=== PATIENT | male | born 1980 | race Caucasian/White ===

== ENCOUNTER 2020-06-07 17:23 | Emergency (ER) | payer OTHER, SELFPAY ==
--- NOTE | ~2020-06-07 | XR_ITS ---
EXAMINATION: XR ANKLE, LEFT CLINICAL INFORMATION: Ankle pain status post injury COMPARISON: Left ankle 02/13/2012 TECHNIQUE: AP, lateral, and mortise views of the left ankle. FINDINGS: 4 well-corticated bony densities are seen posterior to the medial malleolus which were not present in 2012 and are most likely secondary to chronic injury. Some similar well-corticated densities are seen medial to the calcaneus, also probably from chronic injury. Degenerative changes are present involving the navicular cuneiform joint. No acute fracture is seen. XR/XR ankle LT min 3V IMPRESSION: Evidence of old remote trauma with well-corticated densities as described above. An acute fracture is not seen.
--- NOTE | ~2020-06-07 | XR_ITS ---
EXAMINATION: XR LUMBOSACRAL SPINE CLINICAL INFORMATION: Fell on trampoline. COMPARISON: Lumbar spine 05/27/2015 TECHNIQUE: Three views of the lumbosacral spine. FINDINGS: There is normal lumbar lordosis. There is loss of L5-S1 and L2-L3 disc heights with moderate ventral spondylosis. No lytic process seen. No visible acute fracture or dislocation seen. The paravertebral soft tissues are normal. SI joints are symmetrical and normal. XR/XR lumbar spine 2-3V IMPRESSION: Mild degenerative disc changes L2-L3 and L5-S1 disc levels with moderate ventral spondylosis at L1-L2 and L2-L3 disc levels.
[2020-06-07 17:33] VITALS: BP 148/98; BP 188/88; PULSE 88; RESP 16; TEMP 36.8; O2SAT 96; O2SAT 97; BMI 51.5
--- NOTE | 2020-06-07 18:31 | ED.BACK ---
HPI - Back Pain/Injury General Chief Complaint: Back Pain/Injury Stated Complaint: LT ANKLE PAIN,LOWER BACK PAIN Time Seen by Provider: 06/07/20 18:48 Source: patient Mode of arrival: EMS Limitations: no limitations History of Present Illness HPI Narrative: 39-year-old male presents via EMS after fall off of a bench. Patient stated he was sitting on a bench with his , trying to take a selfie, when the bench flipped over. He landed on his back and twisted his left ankle. He is unable to bear weight, states to have chronic lower back pain because of disc degeneration, and has a history of kidney transplant. He did not hit his head or lose consciousness, denies bowel and bladder incontinence, loss of sensation to the lower extremities, chest pain or pressure, palpitations, shortness of breath, shortness breath on exertion, abdominal pain, abdominal distention, dysuria, hematuria, and any other concerning symptoms. MD elicited complaint: back pain and other (Left ankle pain) Pertinent past history: recent trauma Onset (ago): hour(s) (Within the hour of arrival) Timing: constant Severity: moderate Similar Symptoms Previously: No Quality: aching and spasming Location: lumbar spine Radiation: none Exacerbating factors: movement and walking Relieving factors: immobilization Context: fall Treatments prior to arrival: cold therapy Work related injury: No Related Data Previous Rx's Medication Instructions Recorded sertraline 100 mg tablet 200 mg PO DAILY #60 tab 01/03/20 promethazine 25 mg tablet 25 mg PO Q6H PRN #120 tab 06/07/20 Allergies Allergy/AdvReac Type Severity Reaction Status Date / Time barium sulfate Allergy Mild HIVES Unverified 11/15/19 14:46 [Barium Sulfate] amoxicillin [Amoxicillin] Allergy Unknown STOMACH Unverified 11/15/19 14:46 UPSET hydrocodone [Vicodin] Allergy Unknown hives Verified 01/04/19 00:00 oxycodone [Percocet] Allergy Unknown hives Verified 01/04/19 00:00 vancomycin [VANCOMYCIN] Allergy Unknown RED MAN Unverified 11/15/19 14:46 SYNDROME HIVES, redmans syndrome Sulfa (Sulfonamide AdvReac Unknown upset Verified 01/04/19 00:00 Antibiotics) stomach From KEFLEX Allergy Unknown HIVES Uncoded 11/15/19 14:46 From Percocet AdvReac Unknown NAUSEA Uncoded 11/15/19 14:46 From VICODIN AdvReac Unknown VOMITTING Uncoded 11/15/19 14:46 Review of Systems Review of Systems: Constitutional: No Fever, No Chills ENT/Mouth: No Ear Pain, No Hoarseness, No sore throat Eyes: No Eye Pain, No Swelling, No Redness, No Foreign Body Cardiovascular: No Chest Pain, No SOB Respiratory: No Cough, No Dyspnea Gastrointestinal: No Nausea, No Vomiting, No Diarrhea, No abdominal Pain Genitourinary: No Dysuria, No Hematuria Musculoskeletal: positive lumbar and left ankle pain, No Myalgias, No Joint Swelling Skin: No Skin lacerations, No rash Neuro: No Weakness, No Numbness, No Paresthesias, No Loss of Consciousness, No Dizziness, No Headache Psych: No Anxiety/Panic, No Depression Heme/Lymph: no easy bruising, no Lymphadenopathy Endocrine: No Polyuria, No Polydipsia Yes all other systems are reviewed and are negative [facility] Past Medical History Attestation statement: The following information was validated with the patient. Source: old records reviewed Medical History Cardiomyopathy CKD (chronic kidney disease) Diabetes HTN (hypertension) PTSD (post-traumatic stress disorder) Surgical History Kidney transplant recipient Social History Social History Alcohol intake: never Smoked in Last 30 Days: No Use of substances other than those prescribed or required for medical reasons: No Advance Directives: No Advance Directives Information Provided: No Physical Exam Vital Signs: Vital Signs: Last Vital Signs Temp 98.2 F 06/07/20 17: Pulse 88 06/07/20 17: Resp 16 06/07/20 17: BP 148/98 H 06/07/20 17: Pulse Ox 96 06/07/20 17:33 Body Mass Index 51.5 Appearance: Alert. Oriented X3. No acute distress. Eyes: Pupils equal, round and reactive to light. ENT: Pharynx normal. Neck: Normal inspection. Neck supple. CVS: Normal heart rate and rhythm. Pulses normal. Respiratory: No respiratory distress. Breath sounds normal. Abdomen: Soft and nontender. Skin: Skin warm and dry. Normal skin color. Normal skin turgor. Extremities: Decreased range of motion to left lower extremity secondary to pain, no swelling or bruising noted, tenderness noted medial and lateral malleolar processes. Vertebral tenderness noted to the lumbar spine. No lower extremity edema. Neuro: No motor deficit. No sensory deficit. Cranial nerves 2-12 intact. Course Course Course Narrative: 39-year-old male with past medical history of kidney transplant, coronary artery disease, diabetes, hypertension, hyperlipidemia, morbid obesity presents with injuries sustained after falling off of a bench. States he landed on his back, twisted his ankle. He does have degenerative disc disease, and chronic back pain. He is unable to bear weight required use to help him on and off the stretcher. There is no visible swelling, bruising, there is tenderness to palpation throughout the entire ankle greater on the lateral than medial side. Has decreased range of motion secondary to the anxiety of the pain. He does report prior ankle fracture dating back to 2011. Plan of care is for x-ray of lumbar spine and ankle. Ankle and spine x-rays are negative for acute fractures or findings are trying a med intervention. Patient does not want any pain medications or muscle relaxers. Would prefer a referral to pain management for physical therapy. He is due for spinal injections in the upcoming weeks. Will give Christian wrap, and crutches. Patient verbalizes understanding of and agrees to plan of care discharge home. MDM - Back Pain/Injury MDM Narrative Medical decision making narrative: Ankle sprain, ankle fracture, lumbar vertebrae fracture Differential Diagnosis Differential diagnosis: Likely sciatica and strain of lumbar region Medical Records Attestation: I reviewed the patient's medical records. Lab Data Attestation: I reviewed the patient's lab results. Imaging Data Ankle x-ray: Attestation: I personally reviewed and interpreted this imaging study as follows: Radiologist's impression: EXAMINATION: XR ANKLE, LEFT CLINICAL INFORMATION: Ankle pain status post injury COMPARISON: Left ankle 02/13/2012 TECHNIQUE: AP, lateral, and mortise views of the left ankle. FINDINGS: 4 well-corticated bony densities are seen posterior to the medial malleolus which were not present in 2012 and are most likely secondary to chronic injury. Some similar well-corticated densities are seen medial to the calcaneus, also probably from chronic injury. Degenerative changes are present involving the navicular cuneiform joint. No acute fracture is seen. XR/XR ankle LT min 3V IMPRESSION: Evidence of old remote trauma with well-corticated densities as described above. An acute fracture is not seen. Lumbar x-ray: Attestation: I personally reviewed and interpreted this imaging study as follows: Radiologist's impression: EXAMINATION: XR LUMBOSACRAL SPINE CLINICAL INFORMATION: Fell on trampoline. COMPARISON: Lumbar spine 05/27/2015 TECHNIQUE: Three views of the lumbosacral spine. FINDINGS: There is normal lumbar lordosis. There is loss of L5-S1 and L2-L3 disc heights with moderate ventral spondylosis. No lytic process seen. No visible acute fracture or dislocation seen. The paravertebral soft tissues are normal. SI joints are symmetrical and normal. XR/XR lumbar spine 2-3V IMPRESSION: Mild degenerative disc changes L2-L3 and L5-S1 disc levels with moderate ventral spondylosis at L1-L2 and L2-L3 disc levels. Discharge Plan Discharge Clinical Impression: Strain of lumbar region Qualifiers: Encounter type: initial encounter Qualified Code(s): S39.012A - Strain of muscle, fascia and tendon of lower back, initial encounter Ankle sprain Qualifiers: Encounter type: initial encounter Involved ligament of ankle: unspecified ligament Laterality: left Qualified Code(s): S93.402A - Sprain of unspecified ligament of left ankle, initial encounter Patient Disposition: Home, Self-Care Instructions: Ankle Sprain (ED), Crutch Instructions (ED), Low Back Strain (ED), R.I.C.E. Treatment (ED), Degenerative Disc Disease (ED) Additional Instructions: You were evaluated for injuries sustained after falling off of a bench. X-rays of the ankle and lower back are negative for acute findings. Is highly suspicious you have left ankle sprain. Please use Christian wrap, ice and elevation, and Tylenol as needed for pain. Use crutches as needed to help ambulation. If pain persists please follow-up with primary care physician. You may need a referral to Orthopedics if pain persists greater 2 weeks. For your degenerative disc disease I have referred you to Dr. Medrano. Please call and request an appointment. Thank you for choosing this emergency department for evaluation. Please follow-up with primary care physician as needed. Return to the emergency department for any new, concerning, or worsening symptoms. Prescriptions: No Action sertraline 100 mg tablet 200 mg PO DAILY Qty: 60 RF: 0 promethazine 25 mg tablet 25 mg PO Q6H PRN (Reason: nausea and vomiting) Qty: 120 RF: 0 Referrals: Quan Medrano MD [Physician] - 2 days (Chronic lower back pain, degenerative disc disease) Interventions: ED Discharge Assessment Last Done: 06/07/20 19:13 Discharge Date/Time: 06/07/20 19:15
[2020-06-07] MEDS: Acetaminophen 325 MG TABLET 650 MG PO (18:40)
== END 2020-06-07 19:15 | disposition home or self-care (01) ==
PROVIDERS: Emergency Provider Internal Medicine; PCP Internal Medicine
DX: S93.402A Sprain of unspecified ligament of left ankle, initial encounter (principal); S39.012A Strain of muscle, fascia and tendon of lower back, initial encounter; W07.XXXA Fall from chair, initial encounter; Y93.89 Activity, other specified; Y92.9 Unspecified place or not applicable; Y99.9 Unspecified external cause status
CPT/HCPCS: 72100; 73610; 99283; 99284

== ENCOUNTER 2020-09-15 16:35 | Emergency (ER) | payer OTHER, SELFPAY ==
--- NOTE | ~2020-09-15 | XR_ITS ---
EXAMINATION: PORTABLE CHEST 1 VIEW CLINICAL INFORMATION: fever chills ?pneumonia . COMPARISON: 12/18/2011. TECHNIQUE: Portable frontal view of the chest was obtained. FINDINGS: The lungs are mildly hypoexpanded. No focal infiltrate, effusion, edema, or pneumothorax. Cardiac and mediastinal silhouettes are within normal limits for size. Single lead pacemaker/AICD is noted with lead tip overlying the expected right ventricle. No acute bony abnormality seen. XR/XR chest 1V IMPRESSION: No focal airspace disease. Mildly hypoexpanded.
[2020-09-15 16:49] VITALS: BP 149/95; PULSE 118; RESP 18; TEMP 36.8; O2SAT 96; BMI 53.5
[2020-09-15 18:12] LABS: MANUAL DIFF FLAG NO
[2020-09-15 18:16] LABS: Basophils Percent Auto 0.3 % (0-2); Eosinophils Percent Auto 0.2 % (0-4); Hematocrit 47.3 % (42-52); Hemoglobin 15.2 g/dl (14.0-18.0); Imm Gran Abs Auto 0.04 X10*3/uL (0.00-0.03); Imm Gran Pct Auto 0.7 % (0.0-0.4); Lymphocytes Absolute Auto 0.6 X10*3/uL (1.2-4.9); Lymphocytes Percent Auto 10.3 % (20-40); Mean Corpuscular HGB Conc 32.1 g/dl (31.0-36.0); Mean Corpuscular Volume 80.9 fL (80-98); Mean Platelet Volume 9.8 fL (9.4-12.4); Monocytes Absolute Auto 0.5 X10*3/uL (0.1-1.2); Neutrophils Absolute Auto 4.8 X10*3/uL (2.0-8.3); Neutrophils Percent Auto 80.5 % (45-73); Platelet Count 145 X10*3/uL (160-400); Red Blood Count 5.85 X10*6/uL (4.60-5.80); Red Cell Distribution Width 13.2 % (11.0-16.0)
[2020-09-15 18:38] LABS: Alanine Aminotransferase 20 U/L (0-40); Alkaline Phosphatase 64 U/L (39-117); Anion Gap 15 (12-20); Aspartate Amino Transferase 18 U/L (5-37); Bilirubin Total 0.9 mg/dL (0.0-1.0); Blood Urea Nitrogen 17 mg/dL (9-16); Calcium 7.9 mg/dL (8.4-10.2); Carbon Dioxide 22 mmol/L (22-29); Chloride 99 mmol/L (96-108); Estimated Glomerular Filt Rate 47; Glucose Random 326 mg/dL (60-115); Lipase 12 U/L (8-78); Magnesium 1.4 mg/dL (1.6-2.6); Potassium 4.1 mmol/L (3.3-5.1); Sodium 132 mmol/L (135-145); Total Protein 6.9 g/dL (6.5-8.0)
--- NOTE | 2020-09-15 19:32 | ED.GENADULT ---
HPI - General Adult General Chief complaint: General Medical Stated complaint: Fever Time Seen by Provider: 09/15/20 17:30 Source: patient Mode of arrival: ambulatory Limitations: no limitations History of Present Illness HPI narrative: Patient's history of kidney transplant 2013 was doing okay until last night when having chills and low-grade fever body aches malaise no cough no shortness of breath has diffuse abdominal cramps no urinary complaints did not drink much today no other family member sick. Patient has already received COVID-19 vaccine Related Data Home Medications Medication Instructions Recorded Confirmed albuterol sulfate 90 mcg/actuation 2 puff INHALATION Q6-8H PRN g 06/09/20 06/09/20 aerosol inhaler blood sugar diagnostic #10 ea 06/09/20 carvedilol 25 mg tablet 50 mg PO BID 06/09/20 06/09/20 insulin aspart U-100 100 unit/mL SUBCUT 06/09/20 06/09/20 subcutaneous solution omeprazole 40 mg capsule,delayed 40 mg PO DAILY 06/09/20 06/09/20 release Previous Rx's Medication Instructions Recorded sertraline 100 mg tablet 200 mg PO DAILY #60 tab 01/03/20 promethazine 25 mg tablet 25 mg PO Q6H PRN #120 tab 06/07/20 clonazepam 1 mg tablet 1 mg PO BID PRN 30 Days #60 tab 09/09/20 Allergies Allergy/AdvReac Type Severity Reaction Status Date / Time barium sulfate Allergy Mild HIVES Verified 06/09/20 16:55 [Barium Sulfate] amoxicillin [Amoxicillin] Allergy Unknown STOMACH Verified 06/09/20 16:55 UPSET hydrocodone [Vicodin] Allergy Unknown hives Verified 06/09/20 16:55 oxycodone [Percocet] Allergy Unknown hives Verified 06/09/20 16:55 vancomycin [VANCOMYCIN] Allergy Unknown RED MAN Verified 06/09/20 16:55 SYNDROME HIVES, redmans syndrome Sulfa (Sulfonamide AdvReac Unknown upset Verified 06/09/20 16:55 Antibiotics) stomach From KEFLEX Allergy Unknown HIVES Uncoded 06/09/20 16:55 From Percocet AdvReac Unknown NAUSEA Uncoded 06/09/20 16:55 From VICODIN AdvReac Unknown VOMITTING Uncoded 06/09/20 16:55 Review of Systems Review of Systems: Yes all other systems are reviewed and are negative PMFSH Past Medical History Medical History Anxiety Cardiomyopathy CKD (chronic kidney disease) Diabetes Diabetes mellitus HTN (hypertension) Lumbar degenerative disc disease Medicare annual wellness visit, initial Morbid obesity with BMI of 45.0-49.9, adult PTSD (post-traumatic stress disorder) Surgical History Kidney transplant recipient Social History Social History Alcohol intake: never Patient Tobacco Use Status: Never used Tobacco Use of substances other than those prescribed or required for medical reasons: Unknown Advance Directives: No Physical Exam Vital Signs: Vital Signs: Last Vital Signs Temp 99.3 F 09/15/20 19:38 Pulse 99 09/15/20 20:45 Resp 20 09/15/20 20:45 BP 134/85 09/15/20 20:45 Pulse Ox 95 09/15/20 20:45 Body Mass Index 53.5 Appearance: Alert. Oriented X3. No acute distress. Eyes: PERRLA, No Nystagmus ENT: Pharynx normal. Oral Mucosa moist Neck: Normal inspection. Neck supple. CVS: Normal heart rate and rhythm. Pulses normal. Respiratory: No respiratory distress. Equal air entry bilateral, no wheezing/rales/rhonchi Abdomen: Soft and nontender. Bowel sounds are present, no mass palpable, no CVA tenderness Skin: Skin warm and dry. Normal skin color. Normal skin turgor. Extremities: No lower extremity edema. No calf tenderness Neuro: Oriented X 3. No motor deficit. Medical Decision Making MDM Narrative Medical decision making narrative: Although patient is immunocompromised receiving medication for renal transplant no source of bacterial infection was found as a cause of fever patients for slightly dehydrated received IV advised to follow with PCP/renal transplant clinic. Blood cultures were drawn normal lactic acid level and normal WBC level patient feeling much better after IV fluids Lab Data Lab results reviewed: Yes I reviewed the patient's lab results. Result diagrams: 09/15/20 18:06 09/15/20 18:06 Labs: Lab Results 09/15/20 09/15/20 09/15/20 Range/Units 18:06 18:06 18:06 WBC 6.0 (4.8-10.8) X10*3/uL RBC 5.85 H (4.60-5.80) X10*6/uL Hgb 15.2 (14.0-18.0) g/dl Hct 47.3 (42-52) % MCV 80.9 (80-98) fL MCH 26.0 L (27.0-33.0) pg MCHC 32.1 (31.0-36.0) g/dl RDW 13.2 (11.0-16.0) % Plt Count 145 L (160-400) X10*3/uL MPV 9.8 (9.4-12.4) fL Immature Gran % (Auto) 0.7 H (0.0-0.4) % Neut % (Auto) 80.5 H (45-73) % Lymph % (Auto) 10.3 L (20-40) % [place] % (Auto) 8.0 (2-11) % Eos % (Auto) 0.2 (0-4) % Baso % (Auto) 0.3 (0-2) % Lymph # (Auto) 0.6 L (1.2-4.9) X10*3/uL [place] # (Auto) 0.5 (0.1-1.2) X10*3/uL Eos # (Auto) 0.0 (0.0-0.4) X10*3/uL Baso # (Auto) 0.0 (0.0-0.2) X10*3/uL Abs Immat Gran (auto) 0.04 H (0.00-0.03) X10*3/uL Absolute Neuts (auto) 4.8 (2.0-8.3) X10*3/uL Absolute Nucleated RBC 0.000 (0.0-0.012) X10*3/uL Nucleated RBC % (auto) 0.0 (0.0-0.2) /100WBC Hold Purple Top SEE NOTE Sodium 132 L (135-145) mmol/L Potassium 4.1 (3.3-5.1) mmol/L Chloride 99 (96-108) mmol/L Carbon Dioxide 22 (22-29) mmol/L Anion Gap 15 (12-20) BUN 17 H (9-16) mg/dL Creatinine 1.61 H (0.5-1.4) mg/dL Estim Creat Clear Calc 97.0 Estimated GFR 47 Random Glucose 326 H (60-115) mg/dL Lactic Acid (0.5-2.0) mmol/L Calcium 7.9 L (8.4-10.2) mg/dL Magnesium 1.4 L* (1.6-2.6) mg/dL Total Bilirubin 0.9 (0.0-1.0) mg/dL AST 18 (5-37) U/L ALT 20 (0-40) U/L Alkaline Phosphatase 64 (39-117) U/L Total Protein 6.9 (6.5-8.0) g/dL Albumin 4.0 (3.5-5.0) g/dL Lipase 12 (8-78) U/L Urine Color Urine Appearance Urine pH (5.0-8.0) Ur Specific [place] (1.005-1.025) Urine Protein (NEG-TRACE) MG/DL Urine Glucose (UA) (NEG) MG/DL Urine Ketones (NEG) MG/DL Urine Blood (NEG) Urine Nitrite (NEG) Ur Leukocyte Esterase (NEG) Urine RBC (0) /HPF Urine WBC (0-4) /HPF Ur Squamous Epith Cells /LPF Urine Bacteria /LPF Coronavirus (PCR) (Negative) Influenza Type A (PCR) (Negative) Influenza Type B (PCR) (Negative) RSV RNA Qual (PCR) (Negative) 09/15/20 09/15/20 09/15/20 Range/Units 19:38 19:43 20:02 WBC (4.8-10.8) X10*3/uL RBC (4.60-5.80) X10*6/uL Hgb (14.0-18.0) g/dl Hct (42-52) % MCV (80-98) fL MCH (27.0-33.0) pg MCHC (31.0-36.0) g/dl RDW (11.0-16.0) % Plt Count (160-400) X10*3/uL MPV (9.4-12.4) fL Immature Gran % (Auto) (0.0-0.4) % Neut % (Auto) (45-73) % Lymph % (Auto) (20-40) % [place] % (Auto) (2-11) % Eos % (Auto) (0-4) % Baso % (Auto) (0-2) % Lymph # (Auto) (1.2-4.9) X10*3/uL [place] # (Auto) (0.1-1.2) X10*3/uL Eos # (Auto) (0.0-0.4) X10*3/uL Baso # (Auto) (0.0-0.2) X10*3/uL Abs Immat Gran (auto) (0.00-0.03) X10*3/uL Absolute Neuts (auto) (2.0-8.3) X10*3/uL Absolute Nucleated RBC (0.0-0.012) X10*3/uL Nucleated RBC % (auto) (0.0-0.2) /100WBC Hold Purple Top Sodium (135-145) mmol/L Potassium (3.3-5.1) mmol/L Chloride (96-108) mmol/L Carbon Dioxide (22-29) mmol/L Anion Gap (12-20) BUN (9-16) mg/dL Creatinine (0.5-1.4) mg/dL Estim Creat Clear Calc Estimated GFR Random Glucose (60-115) mg/dL Lactic Acid 1.2 (0.5-2.0) mmol/L Calcium (8.4-10.2) mg/dL Magnesium (1.6-2.6) mg/dL Total Bilirubin (0.0-1.0) mg/dL AST (5-37) U/L ALT (0-40) U/L Alkaline Phosphatase (39-117) U/L Total Protein (6.5-8.0) g/dL Albumin (3.5-5.0) g/dL Lipase (8-78) U/L Urine Color YELLOW Urine Appearance CLEAR Urine pH 6.0 (5.0-8.0) Ur Specific [place] >= 1.030 H (1.005-1.025) Urine Protein 2+ H (NEG-TRACE) MG/DL Urine Glucose (UA) NEG (NEG) MG/DL Urine Ketones NEG (NEG) MG/DL Urine Blood 2+ H (NEG) Urine Nitrite NEG (NEG) Ur Leukocyte Esterase NEG (NEG) Urine RBC 10-14 H (0) /HPF Urine WBC 0 (0-4) /HPF Ur Squamous Epith Cells 2+ /LPF Urine Bacteria NONE /LPF Coronavirus (PCR) NEGATIVE (Negative) Influenza Type A (PCR) NEGATIVE (Negative) Influenza Type B (PCR) NEGATIVE (Negative) RSV RNA Qual (PCR) NEGATIVE (Negative) Discharge Plan Discharge Clinical Impression: Fever, Renal failure, acute Patient Disposition: Home, Self-Care Instructions: Acute Kidney Injury (DC), Fever in Adults (ED) Additional Instructions: Drink plenty of fluids. Source of infection is not very clear at this time Tylenol for fever Report to the PCP/ER if fever continues Prescriptions: No Action sertraline 100 mg tablet 200 mg PO DAILY Qty: 60 RF: 0 promethazine 25 mg tablet 25 mg PO Q6H PRN (Reason: nausea and vomiting) Qty: 120 RF: 0 clonazepam 1 mg tablet 1 mg PO BID PRN (Reason: anxiety) 30 Days Qty: 60 RF: 0 omeprazole 40 mg capsule,delayed release(DR/EC) 40 mg PO DAILY RF: 0 (DME) FreeStyle Lite Strips Strip See Rx Instructions strip Not Applicable TID Qty: 10 RF: 0 insulin aspart U-100 100 unit/mL solution subcut RF: 0 carvedilol 25 mg tablet 50 mg PO BID RF: 0 albuterol sulfate 90 mcg/actuation HFA aerosol inhaler 2 puff inhalation Q6-8H PRN (Reason: shortness of breath or wheezing) RF: 0 Interventions: ED Discharge Assessment Last Done: 09/15/20 22:40 Discharge Date/Time: 09/15/20 22:00
[2020-09-15 19:38] VITALS: BP 128/80; PULSE 109; RESP 24; TEMP 37.4; O2SAT 95
[2020-09-15 19:51] LABS: Glucose Urine UA NEG (NEG); Leukocyte Esterase Urine NEG (NEG); Nitrite Urine NEG (NEG); Specific Gravity - Urine >= 1.030 (1.005-1.025); Urine Blood 2+ (NEG); Urine Ketones NEG (NEG); Urine Protein 2+ MG/DL (NEG-TRACE)
[2020-09-15] MEDS: 0.9 % Sodium Chloride 1,000 ML 999 ML IVCONT (19:52)
[2020-09-15 19:57] LABS: Appearance Urine CLEAR; Color Urine YELLOW
[2020-09-15 20:09] VITALS: BP 128/80; PULSE 109; RESP 24; O2SAT 96
[2020-09-15 20:13] LABS: WBC Urine 0 /HPF (0-4)
[2020-09-15 20:14] LABS: Squamous Epithelial Cell Urine 2+ /LPF
[2020-09-15 20:26] LABS: Influenza A PCR NEGATIVE (Negative); Influenza B PCR NEGATIVE (Negative); Resp Syncy Virus RNA Qual PCR NEGATIVE (Negative); SARS COV2 PCR INHOUSE NEGATIVE (Negative)
[2020-09-15 20:33] LABS: Lactic Acid 1.2 mmol/L (0.5-2.0)
[2020-09-15 20:45] VITALS: BP 134/85; PULSE 99; RESP 20; O2SAT 95
== END 2020-09-15 22:00 | disposition home or self-care (01) ==
PROVIDERS: Physician Assistant Medical; Emergency Provider Internal Medicine; PCP Internal Medicine
DX: N17.9 Acute kidney failure, unspecified (principal); R50.9 Fever, unspecified; I12.9 Hypertensive chronic kidney disease with stage 1 through stage 4 chronic kidney disease, or unspecified chronic kidney disease; E11.22 Type 2 diabetes mellitus with diabetic chronic kidney disease; N18.9 Chronic kidney disease, unspecified; Z79.4 Long term (current) use of insulin; Z79.899 Other long term (current) drug therapy; Z20.822 Contact with and (suspected) exposure to COVID-19; Z94.0 Kidney transplant status
CPT/HCPCS: 0241U; 36415; 71045; 80053; 81001; 83605; 83690; 83735; 85025; 87040; 96360; 99284

== ENCOUNTER 2021-03-05 14:02 | Emergency (ER) | payer OTHER, SELFPAY ==
--- NOTE | ~2021-03-05 | XR_ITS ---
EXAMINATION: XR KNEE, LEFT CLINICAL INFORMATION: Fall, knee pain. COMPARISON: Radiograph of the left knee dated from 04/12/2013. TECHNIQUE: Four views of the left knee. FINDINGS: No evidence of acute fractures or malalignment. There are tricompartmental degenerative changes with joint space narrowing, subcortical sclerosis and osteophytes. Subtle chondrocalcinosis is also noted. No joint effusion. No unexpected radiopaque foreign bodies. XR/XR knee LT 4V IMPRESSION: No acute fractures or malalignment. Mild tricompartmental degenerative changes.
[2021-03-05 14:51] VITALS: BP 159/94; PULSE 84; RESP 19; TEMP 36.6; O2SAT 99; BMI 46.0
== END 2021-03-05 21:02 | disposition left against medical advice (07) ==
PROVIDERS: Emergency Provider Emergency Medicine; PCP Internal Medicine
DX: S89.92XA Unspecified injury of left lower leg, initial encounter (principal); W19.XXXA Unspecified fall, initial encounter; Y93.9 Activity, unspecified; Y92.9 Unspecified place or not applicable; Y99.9 Unspecified external cause status
CPT/HCPCS: 73564; 99282; 99283

== ENCOUNTER 2021-09-01 17:22 | Emergency (ER) | payer OTHER, SELFPAY ==
[2021-09-01 17:26] VITALS: BMI 44.3
[2021-09-01 17:29] VITALS: BP 135/92; PULSE 139; RESP 22; TEMP 37.7; O2SAT 96; BMI 44.3
--- NOTE | 2021-09-01 17:47 | ECG_ITS ---
Test Reason : CP Blood Pressure : / mmHG Vent. Rate : 138 BPM Atrial Rate : 138 BPM P-R Int : 132 ms QRS Dur : 106 ms QT Int : 294 ms P-R-T Axes : -17 250 049 degrees QTc Int : 445 ms Sinus tachycardia Right superior axis deviation Inferior infarct , age undetermined Abnormal ECG When compared with ECG of 04-AUG-2012 12:12, Vent. rate has increased BY 62 BPM QRS axis Shifted left T wave inversion no longer evident in Lateral leads Referred By: Generic ED Physician Electronically Signed By:Toni Negrete
[2021-09-01 18:03] LABS: MANUAL DIFF FLAG NO
[2021-09-01 18:05] LABS: Basophils Percent Auto 0.3 % (0-2); Hematocrit 48.8 % (42.0-52.0); Hemoglobin 15.7 g/dl (14.0-18.0); Imm Gran Abs Auto 0.05 X10*3/uL (0.00-0.03); Imm Gran Pct Auto 0.5 % (0.0-0.4); Lymphocytes Absolute Auto 0.3 X10*3/uL (1.2-4.9); Lymphocytes Percent Auto 3.4 % (20-40); Mean Corpuscular HGB Conc 32.2 g/dl (31.0-36.0); Mean Corpuscular Hemoglobin 25.8 pg (27.0-33.0); Mean Corpuscular Volume 80.3 fL (80.0-98.0); Mean Platelet Volume 9.6 fL (9.4-12.4); Monocytes Absolute Auto 0.6 X10*3/uL (0.1-1.2); Monocytes Percent Auto 5.8 % (2-11); Neutrophils Absolute Auto 9.1 x10*3/uL (2.0-8.3); Platelet Count 185 X10*3/uL (160-400); Red Blood Count 6.08 X10*6/uL (4.60-5.80); Red Cell Distribution Width 13.2 % (11.0-16.0); White Blood Count 10.1 X10*3/uL (4.8-10.8)
[2021-09-01 18:10] LABS: COVID-19 Test Negative (Negative); IDNOW Serial# 16C4AD1C; Influenza A Negative (Negative)
[2021-09-01 18:11] LABS: Influenza B2 Positive (Negative)
[2021-09-01 18:17] LABS: Anion Gap 18 (12-20); Blood Urea Nitrogen 18 mg/dL (9-16); Calcium 8.4 mg/dL (8.4-10.2); Carbon Dioxide 20 mmol/L (22-29); Chloride 99 mmol/L (96-108); Creatinine Clr Calc Pharmacy 83.9; Estimated Glomerular Filt Rate 46; Glucose Random 251 mg/dL (60-115); Potassium 4.3 mmol/L (3.3-5.1); Sodium 133 mmol/L (135-145)
[2021-09-01 18:25] LABS: Troponin-I High Sensitivity 7.8 ng/L (<3.5-35.0)
[2021-09-01 20:25] VITALS: TEMP 38
[2021-09-01 23:11] LABS: Glucose, Whole Blood 248 mg/dL (60-115)
== END 2021-09-01 22:54 | disposition left against medical advice (07) ==
PROVIDERS: Emergency Provider Emergency Medicine; PCP Internal Medicine
DX: R10.9 Unspecified abdominal pain (principal); R50.9 Fever, unspecified; R00.2 Palpitations; Z79.899 Other long term (current) drug therapy
CPT/HCPCS: 36415; 80048; 82947; 84484; 85025; 87502; 87635; 93005; 99283

== ENCOUNTER 2022-12-01 16:48 | Outpatient (AMB) | payer OTHER, MEDICAID, SELFPAY ==
[2022-12-01 16:54] VITALS: BP 152/98; PULSE 89; O2SAT 97; BMI 49.5
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
== END 2022-12-01 17:40 | disposition home or self-care (01) ==
PROVIDERS: PCP Internal Medicine; Visit Provider Internal Medicine
DX: E11.9 Type 2 diabetes mellitus without complications (principal)
CPT/HCPCS: 83036; 99214

== ENCOUNTER 2024-05-16 12:58 | Outpatient (AMB) | payer OTHER, MEDICAID, SELFPAY ==
--- NOTE | 2024-05-16 13:13 | A.OFFPC_ITS ---
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 Required: No Accompanied by: Self / Same As Patient Allergies barium sulfate [Barium Sulfate] Allergy (Mild, Verified 05/16/24 13:36) HIVES amoxicillin [Amoxicillin] Allergy (Unknown, Verified 05/16/24 13:36) STOMACH UPSET hydrocodone [Vicodin] Allergy (Unknown, Verified 05/16/24 13:36) hives oxycodone [Percocet] Allergy (Unknown, Verified 05/16/24 13:36) hives vancomycin [VANCOMYCIN] Allergy (Unknown, Verified 05/16/24 13:36) 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, redmans syndrome Sulfa (Sulfonamide Antibiotics) Adverse Reaction (Unknown, Verified 05/16/24 13:36) upset stomach From KEFLEX Allergy (Unknown, Uncoded 05/16/24 13:36) HIVES From Percocet Adverse Reaction (Unknown, Uncoded 05/16/24 13:36) NAUSEA From VICODIN Adverse Reaction (Unknown, Uncoded 05/16/24 13:36) VOMITTING Medication List - Last Reconciled 05/16/24 by Segun Esqueda MD albuterol sulfate 90 mcg/actuation 2 puffs inhalation Q6-8H PRN blood sugar diagnostic As directed calcium carbonate 500 mg PO BID carvedilol 37.5 mg PO BID clonazepam 1 mg PO BID 7 days empagliflozin (Jardiance) 10 mg PO QAM ergocalciferol (vitamin D2) 1,250 mcg PO QWEEK insulin aspart U-100 2 to 40 units 3 times a day with meals per sliding scale subcutaneously; insulin glargine U-300 conc (Toujeo SoloStar U-300 Insulin) 65 units subcut DAILY losartan 50 mg PO DAILY omeprazole 40 mg PO DAILY promethazine 25 mg PO Q6H PRN sertraline 100 mg PO DAILY tacrolimus 4 mg PO Q12H Tobacco use date assessed: 05/16/24 Dental Screening Dental Screen Date: 05/16/24 Did you have a dental visit in the last 12 months?: No Did you have a dental problem in the last 6 months where you did not have access to dental care?: No Was dental information given to patient?: No HPI Annual PE HPI Details Patient comes in today for his annual physical examination - he has not been back since his last visit on 12/01/2022 Patient states that he feels okay He has been continuing to 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 and states that he just had some labs done at [facility] a few weeks ago Relates that his HgbA1c was at 11.5% back in January 2024, and his serum creatinine was at 1.3 and eGFR at 74 States that he is 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 He denies any headaches or dizziness Denies any chest pains, no increased shortness of breath No nausea/vomiting, no abdominal pain No change in bowel habits noted He denies any acute urinary symptoms States that he will need his Clonazepam Rx refilled today [facility] Medical History (Updated 05/20/24 @ 23:49 by Segun Esqueda MD) Vitamin D deficiency GERD without esophagitis Depression Neuropathy Asthma Benign essential hypertension End-stage renal disease (ESRD) A-V fistula (~2008) Hyperparathyroidism Lumbar degenerative disc disease Diabetes mellitus Morbid obesity with BMI of 45.0-49.9, adult Anxiety Cardiomyopathy Diabetes PTSD (post-traumatic stress disorder) HTN (hypertension) Surgical History Status post -donor kidney transplantation (~01/10/13) -donor kidney transplant recipient Arteriovenous fistula removed (~12/2016) History of renal transplant (~01/10/13) Social History Housing: House Alcohol intake: never Patient Tobacco Use Status: Never used Tobacco service: No Current occupational status: employed Cognitive needs: No Hearing needs: No Vision needs: No Questionnaire PHQ-9 Over the last 2 weeks, how often have you been bothered by any of the following problems? 1. Little interest or pleasure in doing things: not at all 2. Feeling down, depressed, or hopeless: not at all 3. Trouble falling or staying asleep, or sleeping too much: not at all 4. Feeling tired or having little energy: not at all 5. Poor appetite or overeating: not at all 6. Feeling bad about yourself - or that you are a failure or have let yourself or your family down: not at all 7. Trouble concentrating on things, such as reading the newspaper or watching television: not at all 8. Moving or speaking so slowly that other people could have noticed. Or the opposite - being so fidgety or restless that you have been moving around a lot more than usual: not at all 9. Thoughts that you would be better off or of hurting yourself in some way: not at all Total score: 0 Depression Screening Interpretation: Negative Depression Screening Done: Yes 97359 - PHQ-9 Billing: Yes Source: Developed by Drs. Jhoan Mcpherson, Torie Lin, Romulo Davis and colleagues, with an educational allan from [employer]. Thrive Questionnaire Date Thrive assessed: 05/16/24 I am a: Patient What is your living situation today?: I have a steady place to live Within the past 12 months, did the food you bought not last and you didn't have the money to get more?: I choose not to answer this question Within the past 12 months, did you worry whether your food would run out before you got money to buy more?: I choose not to answer this question Do you have trouble paying for medicines?: I choose not to answer this question Do you have trouble getting transportation to medical appointments?: I choose not to answer this question Do you have trouble paying your heating and electricity bill?: I choose not to answer this question Do you have trouble taking care of your child, family member or friend?: I choose not to answer this question Do you have trouble with day-to-day activities such as bathing, preparing meals, shopping, managing finances, etc.?: I choose not to answer this question Are you currently unemployed and looking for a job?: I choose not to answer this question Are you interested in more education?: I choose not to answer this question Please select the resources that you would like help with: None Currently or been in a relationship where the following occur: No concerns reported THRIVE Score: 0 AUDIT C Alcohol Use Questionnaire (AUDIT-C) 1. How often do you have a drink containing alcohol?: Never 3. How often do you have six or more drinks on one occasion?: Never Total Score: 0 Score Reviewed/Action Taken: Yes NEELIMA-7 AMB Questionnaire NEELIMA-7 Date NEELIMA - 7 assessed: 05/16/24 Feeling nervous, anxious, or on edge: 0 = Not at all Not being able to stop or control worryin = Not at all Worrying too much about different things: 0 = Not at all Trouble relaxin = Not at all Being so restless that it is hard to sit still: 0 = Not at all Becoming easily annoyed or irritable: 0 = Not at all Feeling afraid as if something awful might happen: 0 = Not at all Total NEELIMA-7 score (0-4 normal; 5-9 mild; 10-14 moderate; 15-21 severe): 0 Source: Developed by Drs. Jhoan Mcpherson, Torie Lin, Romulo Davis and colleagues, with an educational allan from [employer]. Review of Systems Const Denies chills, Denies fatigue, Denies fever(s), Denies headache(s), Denies malaise and Denies weakness Eyes Denies blurry vision, Denies change in vision, Denies irritation and Denies itchy eyes ENT Denies dysphagia, Denies dizziness, Denies otalgia, Denies headache(s), Denies nasal congestion, Denies neck pain, Denies odynophagia and Denies sore throat Card Denies chest pain, Denies rapid heart rate, Denies irregular heart rhythm, Denies palpitations and Denies dyspnea Resp Denies chest congestion, Denies cough, Denies dyspnea and Denies wheezing GI Denies abdominal pain, Denies bloating, Denies constipation, Denies dysphagia, Denies heartburn, Denies diarrhea, Denies nausea, Denies odynophagia and Denies vomiting Denies hematuria, Denies difficulty urinating, Denies dysuria, Denies urinary frequency and Denies urinary urgency Musc Denies back pain, Denies arthralgias, Denies joint swelling, Denies muscle weakness and Denies neck pain Skin/Breast Denies change in pigmentation, Denies lesions, Denies rash and Denies unusual bruising Neuro Denies dizziness, Denies headache(s), Denies paresthesias and Denies weakness Psych Reports anxiety and Denies depression Endo Denies fatigue and Denies palpitations Aller/Immun Denies itchy eyes and Denies wheezing Physical exam (Primary Care) Vital Signs: Last Vital Signs Pulse 102 H 05/16/24 13:17 BP 140/100 H 05/16/24 13:17 Pulse Ox 95 05/16/24 13:17 Oxygen Delivery Method Room Air 05/16/24 13:17 BMI result Body Mass Index 48.3 Tobacco/Smoking Status: Tobacco use Status Tobacco use date assessed 05/16/24 05/16/24 13:24 Patient Tobacco Use Status Never used Tobacco 05/16/24 13:24 PHQ-9: PHQ-9 Score PHQ-9: Total score 0 05/16/24 13:40 Depression Screening Interpretation: Negative Thrive Assessment: Date of Thrive Assessment Date Thrive assessed 05/16/24 05/16/24 13:24 Currently or been in a relationship where the following occur: No concerns reported Const General: no acute distress, alert and awake Orientation/consciousness: patient oriented x3 HENMT Head: Yes normocephalic and Yes atraumatic Ears: external ears normal, TM's normal bilaterally and EAC's normal General nose exam: No nasal discharge present Face and sinus: Yes normal facial exam and Yes sinuses nontender Teeth and gingiva: dentition normal Throat: Yes posterior oropharynx normal and Yes tonsils normal (no TP congestion) Eyes Eyelids: Yes eyelids normal Conjunctivae: conjunctivae normal Pupils: Equal, round and reactive pupils present EOM: EOMs intact bilaterally Neck Neck: Yes supple and No lymphadenopathy Thyroid: Thyroid normal Resp Auscultation: clear to auscultation bilaterally, no rales and no wheezes Cardio Rate: regular rate Rhythm: regular rhythm Heart sounds: no murmurs GI Palpation (GI): Soft to palpation, nontender and No hepatosplenomegaly present Auscultation: normal bowel sounds General: Yes no CVA tenderness Back/Spine/Pelvis Back: no CVA tenderness Thoracic/Lumbar Spine: No lumbar spinal tenderness Skin Lesions: no lesions Rashes: no rashes Neuro General: patient oriented x3, moves all extremities, no focal motor deficits and CN's II-XI intact bilaterally Cranial nerves: Yes Equal, round and reactive pupils present Cognition (Neuro): normal cognition Gait exam (Neuro): Normal gait present Extrem General: Yes no clubbing, cyanosis or edema Coding Level of Care Code Est Pt Prev Care 40-64y(60810) Diagnoses Annual physical exam Z00.00 End-stage renal disease (ESRD) N18.6 -donor kidney transplant recipient Z94.0 Type 2 diabetes mellitus with chronic kidney disease, with long-term current use of insulin, unspecified CKD stage E11.22; Z79.4 Diabetes mellitus type: type 2 Diabetes mellitus moth exterminator insulin use: with moth exterminator use Diabetes mellitus complication status: with kidney complications Diabetes mellitus complication detail: with chronic kidney disease Chronic kidney disease stage: unspecified stage Cardiomyopathy, unspecified type I42.9 Cardiomyopathy type: unspecified Benign essential hypertension I10 Mild intermittent asthma without complication J45.20 Asthma severity: mild Asthma persistence: intermittent Asthma complication type: uncomplicated Vitamin D deficiency E55.9 GERD without esophagitis K21.9 Neuropathy G62.9 Anxiety F41.9 Episode of recurrent major depressive disorder, unspecified depression episode severity F33.9 Depression Type: major depressive disorder Major depression recurrence: recurrent Active/Remission status: currently active Major depression episode severity: unspecified Morbid obesity with BMI of 45.0-49.9, adult E66.01; Z68.42 Colon cancer screening Z12.11 Additional Codes PHQ-9 - 42849 - PHQ-9 Billing: Yes ([id number]) Assessment & Plan Assessment & Plan (1) Annual physical exam: Code(s): Z00.00 - Encounter for general adult medical examination without abnormal findings Category: Medical Plan: Patient states that he just had his labs done at [facility] a couple of months ago - will try to get a copy of his recent labs sent over for review and documentation Will also send patient to get his labs done/updated JESUSITA He is also now due for screening colonoscopy and will be referred to GI for this (2) End-stage renal disease (ESRD): Comment: due to IgA nephropathy Code(s): N18.6 - End stage renal disease Category: Medical Plan: S/P renal transplant on 01/10/2013 Will continue to monitor patient's GFR and renal function regularly Continue Calcium Carbonate (Os-[place]le) 1250 mg BID Follow up with nephrology as scheduled (3) -donor kidney transplant recipient: Code(s): Z94.0 - Kidney transplant status Category: Surgical Plan: Continue Tacrolimus 4 mg BID for chronic immunosuppression therapy (4) Diabetes mellitus: Code(s): E11.9 - Type 2 diabetes mellitus without complications Category: Medical Qualifiers: Diabetes mellitus type: type 2 Diabetes mellitus moth exterminator insulin use: with mcfp use Diabetes mellitus complication status: with kidney complications Diabetes mellitus complication detail: with chronic kidney disease Chronic kidney disease stage: unspecified stage Qualified Code(s): E11.22 - Type 2 diabetes mellitus with diabetic chronic kidney disease; 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) use 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 Plan: His HgbA1c was reportedly at 11.5% most recently in January 2024 - goal is at least <7.0% Reinforced diabetic diet Continue Humalog 2 to 40 units 3 times a day with meals per sliding scale, Toujeo 65 units Q AM and Jardiance 10 mg QD States that he is now seeing [facility] at their office in [place] for continuing management of his diabetes - to follow up with Endocrinology as scheduled (5) Cardiomyopathy: Code(s): I42.9 - Cardiomyopathy, unspecified Category: Medical Qualifiers: Cardiomyopathy type: unspecified Qualified Code(s): I42.9 - Cardiomyopathy, unspecified Plan: (+) Hx of nonischemic cardiomyopathy, 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 Echocardiogram done in 04/2012 prior to his renal transplant revealed an EF of only 25 to 30% Repeat echocardiogram done on 10/16/2013 after his renal transplant revealed that his EF has normalized to 55 to 60% Continue Carvedilol 37.5 mg (1.5 tablet of 25 mg) BID and Jardiance 10 mg QD; patient is emphasized again on the importance of blood pressure control in the management of his cardiomyopathy Follow up with cardiology as scheduled (6) Benign essential hypertension: Code(s): I10 - Essential (primary) hypertension Category: Medical Plan: Reinforced low sodium diet - goal is systolic BP of 120 to 130 mm or less Continue Carvedilol 37.5 mg BID and Losartan 50 mg QD Patient is reminded to continue monitoring his blood pressure regularly Follow up with nephrology as scheduled (7) Asthma: Code(s): J45.909 - Unspecified asthma, uncomplicated Category: Medical Qualifiers: Asthma severity: mild Asthma persistence: intermittent Asthma complication type: uncomplicated Qualified Code(s): J45.20 - Mild intermittent asthma, uncomplicated Plan: Controlled Continue Albuterol HFA 1 to 2 inhalations Q 6 hours PRN (8) Vitamin D deficiency: Code(s): E55.9 - Vitamin D deficiency, unspecified Category: Medical Plan: Continue Vitamin D2 40488 units once a week (9) GERD without esophagitis: Code(s): K21.9 - Gastro-esophageal reflux disease without esophagitis Category: Medical Plan: Dietary restrictions reinforced Continue Omeprazole 40 mg QD (10) Neuropathy: Code(s): G62.9 - Polyneuropathy, unspecified Category: Medical Plan: Patient states that most of his symptoms have been well-controlled - smokes some marijuana occasionally at night, which he states help relieve not only majority of his symptoms here but also helps with his anxiety He was unable to tolerate Lyrica in the past (severe fatigue and nausea) (11) Anxiety: Code(s): F41.9 - Anxiety disorder, unspecified Category: Medical Plan: Continue Clonazepam 1 mg BID PRN - Rx refilled Is also on Sertraline 100 mg QD, which helps with both his anxiety and depression (12) Depression: Code(s): F32.A - Depression, unspecified Category: Medical Qualifiers: Depression Type: major depressive disorder Major depression recurrence: recurrent Active/Remission status: currently active Major depression episode severity: unspecified Qualified Code(s): F33.9 - Major depressive disorder, recurrent, unspecified Plan: Continue Sertraline 100 mg QD Follow up with psychiatry as scheduled (13) Morbid obesity with BMI of 45.0-49.9, adult: Code(s): E66.01 - Morbid (severe) obesity due to excess calories; Z68.42 - Body mass index [BMI] 45.0-49.9, adult Category: Medical Plan: Reinforced diet/exercise as tolerated/lose weight (14) Colon cancer screening: Code(s): Z12.11 - Encounter for screening for malignant neoplasm of colon Category: Medical Plan: He is now due to start colon cancer screening Will refer him to GI for screening colonoscopy Plan Follow up in 4 months Orders: Orders Complete Blood Count Auto Diff 05/16/24 D64.9 - Anemia, unspecified, Z00.00 - Encounter for general adult medical examination without abnormal findings Lipid Panel 05/16/24 E78.00 - Pure hypercholesterolemia, unspecified, Z00.00 - Encounter for general adult medical examination without abnormal findings Hemoglobin A1c 05/16/24 E11.9 - Type 2 diabetes mellitus without complications, Z00.00 - Encounter for general adult medical examination without abnormal findings TSH reflex Free T4 05/16/24 E78.00 - Pure hypercholesterolemia, unspecified, Z00.00 - Encounter for general adult medical examination without abnormal findings UA CC w/rflx Micro + Cult 05/16/24 R30.0 - Dysuria, Z00.00 - Encounter for general adult medical examination without abnormal findings Vitamin B12 and Folate 05/16/24 E53.8 - Deficiency of other specified B group vitamins, Z00.00 - Encounter for general adult medical examination without abnormal findings Vitamin D 25-OH Total 05/16/24 E55.9 - Vitamin D deficiency, unspecified, Z00.00 - Encounter for general adult medical examination without abnormal findings C Peptide 05/16/24 E11.9 - Type 2 diabetes mellitus without complications, Z00.00 - Encounter for general adult medical examination without abnormal findings Glutamic acid decarboxylase Ab 05/16/24 E11.9 - Type 2 diabetes mellitus without complications, Z00.00 - Encounter for general adult medical examination without abnormal findings MMR IgG Measles Mumps Rubella 05/16/24 Z28.39 - Other underimmunization status Comprehensive [place]. Panel Fast 05/16/24 E78.00 - Pure hypercholesterolemia, unspecified, Z00.00 - Encounter for general adult medical examination without abnormal findings Microalbumin, Random (w Creat) 05/16/24 E11.9 - Type 2 diabetes mellitus without complications, Z00.00 - Encounter for general adult medical examination without abnormal findings Prostate Specific Antigen 05/16/24 N40.0 - Benign prostatic hyperplasia without lower urinary tract symptoms, Z00.00 - Encounter for general adult medical examination without abnormal findings Referrals Gastroenterology Referral Z12.11 - Encounter for screening for malignant neoplasm of colon Medications: Refilled clonazepam Patient needs to schedule follow up appt JESUSITA 1 mg PO BID 7 days 14 tabs 0RF anxiety F41.9 - Anxiety disorder, unspecified
[2024-05-16 13:17] VITALS: BP 140/100; PULSE 102; O2SAT 95; BMI 48.3
== END 2024-05-16 13:54 | disposition home or self-care (01) ==
LOC: HO.HMCH 12:59
PROVIDERS: PCP Internal Medicine; Visit Provider Internal Medicine
DX: Z00.00 Encounter for general adult medical examination without abnormal findings (principal); I12.0 Hypertensive chronic kidney disease with stage 5 chronic kidney disease or end stage renal disease; N18.6 End stage renal disease; E11.22 Type 2 diabetes mellitus with diabetic chronic kidney disease; Z79.4 Long term (current) use of insulin; I42.9 Cardiomyopathy, unspecified; F33.9 Major depressive disorder, recurrent, unspecified; E66.01 Morbid (severe) obesity due to excess calories; Z68.42 Body mass index [BMI] 45.0-49.9, adult; Z94.0 Kidney transplant status; J45.20 Mild intermittent asthma, uncomplicated; E55.9 Vitamin D deficiency, unspecified

== ENCOUNTER → 2024-05-16 12:58 | Outpatient (BNVA) | payer OTHER, MEDICAID, SELFPAY | PROVIDERS: PCP Internal Medicine; Visit Provider Internal Medicine | DX: Z00.00 Encounter for general adult medical examination without abnormal findings (principal); I12.0 Hypertensive chronic kidney disease with stage 5 chronic kidney disease or end stage renal disease; E11.22 Type 2 diabetes mellitus with diabetic chronic kidney disease; N18.6 End stage renal disease; I42.9 Cardiomyopathy, unspecified; J45.20 Mild intermittent asthma, uncomplicated; E55.9 Vitamin D deficiency, unspecified; K21.9 Gastro-esophageal reflux disease without esophagitis; E11.40 Type 2 diabetes mellitus with diabetic neuropathy, unspecified; F41.9 Anxiety disorder, unspecified; F33.9 Major depressive disorder, recurrent, unspecified; E66.01 Morbid (severe) obesity due to excess calories; Z68.42 Body mass index [BMI] 45.0-49.9, adult; Z79.4 Long term (current) use of insulin; Z79.899 Other long term (current) drug therapy; Z94.0 Kidney transplant status | CPT/HCPCS: 96127 ==